=== PATIENT | female | born 1955 | race Caucasian/White ===

== ENCOUNTER 2019-04-23 12:00 | Outpatient (CLI) | payer BC, SELFPAY | END 2019-04-23 12:01 | disposition home or self-care (01) | LOC: SLEEP 04-28 12:47 | PROVIDERS: Family Provider Nurse Practitioner; PCP Nurse Practitioner; Visit Provider Internal Medicine Critical Care Medicine | DX: G47.33 Obstructive sleep apnea (adult) (pediatric) (principal) | CPT/HCPCS: G0399 ==

== ENCOUNTER 2019-04-27 09:40 | Outpatient (CLI) | payer BC, SELFPAY | END 2019-04-27 09:41 | disposition home or self-care (01) | PROVIDERS: Family Provider Nurse Practitioner; PCP Nurse Practitioner; Visit Provider Internal Medicine Critical Care Medicine | DX: J45.909 Unspecified asthma, uncomplicated (principal) | CPT/HCPCS: 94010; 94726; 94729 ==

== ENCOUNTER 2019-05-14 20:00 | Outpatient (CLI) | payer BC, SELFPAY | END 2019-05-14 20:01 | disposition home or self-care (01) | LOC: SLEEP 05-15 09:43 | PROVIDERS: Family Provider Nurse Practitioner; PCP Nurse Practitioner; Visit Provider Internal Medicine Critical Care Medicine | DX: G47.33 Obstructive sleep apnea (adult) (pediatric) (principal) | CPT/HCPCS: 95810; 95811 ==

== ENCOUNTER 2019-06-22 13:34 | Outpatient (CLI) | payer BC, SELFPAY ==
--- NOTE | 2019-06-22 14:15 | USCV_ITS ---
Dorothy Odonnell Age: 64 Gender: F : 1955 Exam Date: 06/22/2019 13:52 Ordering Phys: Humza Horton MD Technologist: Nadira Cardona Exam Location: [facility] [place] Indication: AO MURMUR BP: 115 / 75 HR: 84 Rhythm: Sinus Technical Quality: Adequate MEASUREMENTS (Male / Female) Normal Values 2D ECHO LV Diastolic Diameter PLAX 4.8 cm 4.2 - 5.9 / 3.9 - 5.3 cm LV Systolic Diameter PLAX 3.9 cm LV Chamber Size 3.9 cm IVS Diastolic Thickness 1.2 cm 0.6 - 1.0 / 0.6 - 0.9 cm IVS Systolic Thickness 1.6 cm LVPW Diastolic Thickness 1.4 cm 0.6 - 1.0 / 0.6 - 0.9 cm LVPW Systolic Thickness 1.4 cm RV Chamber Size 3.1 cm LVOT Diameter 2.0 cm LV Ejection Fraction 2D Teich 40.0 % LV Ejection Fraction MOD 2C 71.8 % LV Ejection Fraction 2C AL 72.7 % LA Diameter 4.0 cm LA Width 2.7 cm LA Height 4.1 cm RA Width 3.9 cm RA Height 3.5 cm Aorta at Sinotubular Diameter 3.0 cm M-MODE LV Diastolic Diameter MM 5.7 cm 4.2 - 5.9 / 3.9 - 5.3 cm LV Systolic Diameter MM 3.6 cm LV Ejection Fraction MM Teich 66.3 % IVS Diastolic Thickness MM 0.9 cm 0.6 - 1.0 / 0.6 - 0.9 cm IVS Systolic Thickness MM 1.9 cm LVPW Diastolic Thickness MM 1.1 cm 0.6 - 1.0 / 0.6 - 0.9 cm LVPW Systolic Thickness MM 1.6 cm RV Diastolic Diameter MM 1.1 cm Aortic Annulus Diameter 3.4 cm LA Ao Ratio MM 1.2 MV E Point Septal Separation 0.9 cm DOPPLER AV Peak Velocity 165.0 cm/s LVOT Peak Velocity 83.0 cm/s AV Area Cont Eq vti 2.1 cm squared AV Area Cont Eq pk 1.7 cm squared MV Area PHT 5.1 cm squared Mitral E to A Ratio 0.8 MV E' Velocity 10.0 cm/s Mitral E to MV E' Ratio 9.1 Mitral E to LV E' Lateral Ratio 7.9 Mitral E to LV E' Septal Ratio 10.9 TR Peak Velocity 9.0 cm/s TR Peak Gradient 0.0 mmHg TR Mean Velocity 198.2 cm/s TR Mean Gradient 17.8 mmHg TR Velocity Time Integral 66.1 cm TV Peak E Velocity 73.0 cm/s Right Atrial Pressure 3.0 mmHg Pulmonary Artery Systolic Pressu 3.0 mmHg PV Peak Velocity 91.0 cm/s RV Acceleration Time 0.1 s RV Ejection Time 0.3 s RV AcT/ET 0.4 FINDINGS Left Ventricle Normal left ventricular cavity size. Mildly increased left ventricular wall thickness. Normal left ventricular systolic function. Left ventricular ejection fraction is estimated at 61 %. No regional wall motion abnormalities. Normal diastolic function. Right Ventricle Normal right ventricular size and systolic function. Right ventricular systolic pressure 32 mmHg. Right Atrium Normal right atrial size. Left Atrium Upper normal left atrial size. Mitral Valve Mildly thickened mitral valve. Trace mitral valve regurgitation. Aortic Valve Aortic valve not well visualized. Probably trileaflet aortic valve. Aortic valve sclerosis without stenosis. No aortic valve regurgitation. Tricuspid Valve Structurally normal tricuspid valve. No tricuspid valve stenosis. Trace tricuspid valve regurgitation. Pulmonic Valve Pulmonic valve not well visualized. Trace pulmonary valve regurgitation. Pericardium No pericardial effusion. Aorta Normal size aortic root and proximal ascending aorta. CONCLUSIONS 1. Normal left ventricular cavity size and systolic function. Mildly increased left ventricular wall thickness. Left ventricular ejection fraction is estimated at 61 %. No regional wall motion abnormalities. Normal diastolic function. 2. Normal right ventricular size and systolic function. 3. No significant valvular abnormality. 4. Pulmonary artery pressure estimated at 32 mmHg. 5. No prior similar studies to compare. Ilene Michaud MD (Electronically Signed) Final Date: 23 June 2019 17:41 S
== END 2019-06-22 13:35 | disposition home or self-care (01) ==
LOC: RAD 13:36
PROVIDERS: Family Provider Nurse Practitioner; PCP Nurse Practitioner; Visit Provider Internal Medicine Critical Care Medicine
DX: R06.02 Shortness of breath (principal)
CPT/HCPCS: 93306

== ENCOUNTER 2019-10-09 14:11 | Outpatient (CLI) | payer BC, SELFPAY ==
[2019-10-09 14:42] LABS: Basophils # 0.1 10^3/uL (0.0-0.1); Eosinophils # 0.3 10^3/uL (0.0-0.8); Eosinophils % 2.5 %; Hematocrit 39.5 % (37.0-47.0); Lymphocytes # 3.5 10^3/uL (0.8-4.8); Lymphocytes % 34.1 %; Mean Corpuscular HGB Conc 30.4 g/dL (30.0-36.0); Mean Corpuscular Hemoglobin 26.8 pg (28.0-34.0); Mean Corpuscular Volume 88.2 fL (81-99); Mean Platelet Volume 10.2 fL (7.4-10.4); Monocytes # 0.6 10^3/uL (0.2-0.9); Monocytes % 6.3 %; Neutrophils # 5.7 10^3/uL (1.8-7.7); Neutrophils % 55.8 %; Nucleated Red Blood Cells % 0 %; Platelet Count 431 10^3/cmm (130-400); Red Blood Count 4.48 10^6/uL (4.1-5.3); Red Cell Distribution Width 14.9 % (12.1-15.1); White Blood Count 10.2 10^3/uL (4.0-10.0)
[2019-10-09 15:13] LABS: Alanine Aminotransferase 18 U/L (0-33); Albumin Level 4.3 g/dL (3.5-5.2); Alkaline Phosphatase 101 IU/L (35-105); Anion Gap 15.1 (5-19); Aspartate Amino Transferase 15 U/L (0-32); Blood Urea Nitrogen 17 mg/dL (8-23); Calcium 9.8 mg/dL (8.5-10.5); Carbon Dioxide 24 mmol/L (22-29); Chloride 103 mmol/L (98-107); Globulin 2.8 g/dL (1.3-4.6); Glomerular Filtration Rate 100.6 mL/min (90-130); Glucose 107 mg/dL (65-115); Osmolality Calculated 283 mOsm/kg (285-295); Potassium 4.1 mmol/L (3.5-5.1); Sodium 138 mmol/L (136-145); Total Bilirubin 0.2 mg/dL (0.15-1.2); Total Protein 7.1 g/dL (6.6-8.7)
[2019-10-09 15:31] LABS: Erythrocyte Sedimentation Rate 26 mm/hr (0-15)
[2019-10-09 15:46] LABS: C Reactive Protein 9.1 mg/L (0.0-4.9)
[2019-10-09 16:03] LABS: Vitamin B12 561 pg/mL (232-1245)
[2019-10-12 17:20] LABS: Bermuda Class 0; Bermuda Grass (G2) Ige <0.10 kU/L; Cat Dander (E1) Ige <0.10 kU/L; Cat Dander Class 0; Common Ragweed (Short) (W1) Ig <0.10 kU/L; Dog Dander (E5) Ige <0.10 kU/L; Dog Dander Class 0; Elm (T8) Ige <0.10 kU/L; Elm Class 0; English Plantain (W9) Ige <0.10 kU/L; English Plantain Class 0; Immunoglobulin E 5 kU/L (<OR=114); Johnson Grass (G10) Ige <0.10 kU/L; Johnson Grass Cl 0; June Grass Class 0; June Grass(Kentucky Blue) (G8) <0.10 kU/L; Lamb'S Quarters (Goose Foot) <0.10 kU/L; Lamb'S Quarters Class 0; Maple (Box Elder) (T1) Ige <0.10 kU/L; Maple Class 0; Meadow Fescue (G4) Ige <0.10 kU/L; Meadow Fescue Class 0; Oak (T7) Ige <0.10 kU/L; Oak Class 0; Orchard Grass (Cocksfoot) (G3) <0.10 kU/L; Perennial Rye Grass (G5) Ige <0.10 kU/L; Perennial Rye Grass Class 0; Ragweeed Class 0; Rough Marsh Elder (W16) Ige <0.10 kU/L; Rough Marsh Elder Class 0; Sweet Vernal Class 0; Sweet Vernal Grass (G1) Ige <0.10 kU/L; Timothy Grass (G6) Ige <0.10 kU/L; Timothy Grass Class 0
[2019-10-13 18:20] LABS: Alternaria Alternata (M6) Ige <0.10 kU/L; Alternaria Class 0; D. Farinae Class 0; Dermatophagoides Class 0; Dermatophagoides Farinae (D2) <0.10 kU/L; Dermatophagoides Pteronyssinus <0.10 kU/L; House Dust (Greer) (H1) Ige <0.10 kU/L; House Dust (Hollister- Stier) <0.10 kU/L; House Dust Class 0; Mucor Racemosus Class 0; Penicillium Class 0; Penicillium Notatum (M1) Ige <0.10 kU/L
[2019-10-16 16:20] LABS: Aspergillus Fumigatus, Igg Ab, 28.2 mg/L (<=102)
== END 2019-10-09 14:12 | disposition home or self-care (01) ==
LOC: LAB 14:15
PROVIDERS: Family Provider Nurse Practitioner; PCP Nurse Practitioner; Visit Provider Internal Medicine Critical Care Medicine
DX: R53.83 Other fatigue (principal); R06.02 Shortness of breath
CPT/HCPCS: 36415; 80053; 82607; 82785; 84443; 85025; 85651; 86003; 86140

== ENCOUNTER 2019-12-02 15:11 | Outpatient (CLI) | payer BC, SELFPAY ==
--- NOTE | 2019-12-02 15:16 | MM_ITS ---
WS: [id number] BILATERAL DIGITAL SCREENING MAMMOGRAM WITH CAD CLINICAL INFORMATION: SCREENING HISTORY: Screening mammogram. No current complaints. COMPARISON: TECHNIQUE: Bilateral CC and MLO views. FINDINGS: Fatty-replaced breasts bilaterally. No suspicious focal mass, asymmetry, calcifications, or sharepoint application architect ural distortion. No evidence of malignancy. Punctate calcification left breast. MM/[place] [id number] IMPRESSION: BI-RADS: 2-Benign FOLLOW UP: 1 Year Follow-up Recommend return to annual screening mammography.
== END 2019-12-02 15:12 | disposition home or self-care (01) ==
LOC: RADSHAW 15:15
PROVIDERS: PCP Nurse Practitioner; Visit Provider Nurse Practitioner
DX: Z12.31 Encounter for screening mammogram for malignant neoplasm of breast (principal)
CPT/HCPCS: 77067

== ENCOUNTER 2020-08-19 06:00 | Outpatient (RCR) | payer BC, SELFPAY | END 2020-09-05 23:59 | disposition home or self-care (01) | LOC: SPT 06:00 | PROVIDERS: PCP Nurse Practitioner; Visit Provider Internal Medicine Critical Care Medicine | DX: M79.2 Neuralgia and neuritis, unspecified (principal) | CPT/HCPCS: 97161 ==

== ENCOUNTER 2020-08-19 17:08 | Outpatient (CLI) | payer BC, SELFPAY ==
--- NOTE | 2020-08-19 17:14 | XRR_ITS ---
PROCEDURE INFORMATION: Exam: XR Right Hip Exam date and time: 08/19/2020 5:15 PM Age: 65 years old Clinical indication: Hip pain; Right hip; Patient HX: C/O chronic pain RT hip and low back. Fell off roof 20 years ago TECHNIQUE: Imaging protocol: XR Right hip. Views: 2 or 3 views hip with pelvis when performed. Total images: 2 COMPARISON: No relevant prior studies available. FINDINGS: Bones/joints: No visible fracture, subluxation, or dislocation. 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 Chronic right sacroiliitis Soft tissues: Unremarkable. XR/XR hip RT 2-3V wo/w pel* [id number] IMPRESSION: Nonacute.
--- NOTE | 2020-08-19 17:14 | XRR_ITS ---
PROCEDURE INFORMATION: Exam: XR Lumbosacral Spine Exam date and time: 08/19/2020 5:15 PM Age: 65 years old Clinical indication: Patient HX: C/O chronic bilateral low back pain and RT hip. Fell off roof 20 years ago TECHNIQUE: Imaging protocol: XR of the lumbosacral spine. Views: 2 or 3 views. Total images: 3 COMPARISON: No relevant prior studies available. FINDINGS: Bones/joints: No visible acute osseous abnormality. No visible fracture. No visible spondylolysis or spondylolisthesis. Facet arthrosis L4/L5 and L5/S1. Mild intervertebral disc space height loss L3/L4. Remaining intervertebral disc space heights relatively preserved for age. Pedicles intact. Soft tissues: Unremarkable. XR/XR lumbar spine 2-3V* [id number] IMPRESSION: Nonacute.
== END 2020-08-19 17:09 | disposition home or self-care (01) ==
PROVIDERS: PCP Nurse Practitioner; Visit Provider Nurse Practitioner
DX: M25.551 Pain in right hip (principal); G89.29 Other chronic pain; M54.5 Low back pain
CPT/HCPCS: 72100; 73502

== ENCOUNTER 2021-07-03 13:43 | Emergency (ER) | payer BC, SELFPAY ==
[2021-07-03 13:55] VITALS: BP 193/90; PULSE 76; RESP 18; TEMP 36.8; O2SAT 97; BMI 39.1
--- NOTE | 2021-07-03 14:26 | ED_ITS ---
Documented by User: TYE Campa 07/04/21 08:51 HPI - Back Pain/Injury General: Chief Complaint: Back Pain/Injury Stated Complaint: Nausea Lower back pain Time Seen by Provider: 07/03/21 14:08 History of Present Illness: Patient is a 66-year-old female comes to the ED with left flank pain and nausea. Symptoms started at around 10 AM this morning. She first started feeling a little unwell and got nauseous. Then approximately an hour after the nausea started she got severe and intense left flank pain that she rated a 10 out of 10. The pain has reduced some before she arrived to the ED. She now rates it a 7 out of 10 and describes it as intermittent and sharp and achy. Denies any history of kidney stones or any other similar abdominal pain. She endorses having frequent urination this morning but denies any hematuria or dysuria. Associated symptoms: Reports nausea; Deny abdominal pain, chills, dysuria, fatigue, fever(s), hematuria or vomiting Review of Systems Const: Denies: fever(s), chills or fatigue Eyes: Denies: change in vision or eye discomfort ENMT: Denies: throat pain, odynophagia, nasal discharge or nasal congestion Card: Denies: chest pain, palpitations, edema, swelling of feet/ankles, dyspnea on exertion or orthopnea Resp: Denies: dyspnea, productive cough or non-productive cough GI: Reports: nausea; Denies: abdominal pain, vomiting, diarrhea, constipation or hematochezia : Reports: flank pain and urinary frequency (increased); Denies: dysuria or hematuria Musc: Denies: neck pain, back pain or extremity swelling Skin/Breast: Denies: rash or new lesions Neuro: Denies: headache(s), numbness in extremities or weakness in extremities PFSH ED PFSH: Medical History Allergic rhinitis Allergic rhinosinusitis Asthma Urinary bladder incontinence Surgical History H/O eye surgery H/O shoulder surgery History of cholecystectomy History of dermoid cyst excision History of hysterectomy History of nasal surgery History of tonsillectomy and adenoidectomy History of weight loss surgery Family History Father Diabetes Hypertension Mother Hypertension Cancer Brother Hypertension CAD (coronary artery disease) Social History Smoking and tobacco status: former smoker Quit status (tobacco): has quit using tobacco Alcohol intake: current Alcohol intake frequency: holidays/special occasions only Lives independently: Yes Household members: none Marital status: Current occupational status: employed Current occupation: Teacher History of recent travel: No Current gender identity: Female Physical Exam Const: COMMON NORMALS: no acute distress, patient oriented x3 and alert GENERAL APPEARANCE: cooperative and comfortable HENMT: COMMON NORMALS: normocephalic HEAD & SCALP: normocephalic MOUTH: Normal oral and palatal mucosa present THROAT: posterior oropharynx normal and uvula midline Neck/C-Spine: COMMON NORMALS: supple GENERAL: Yes normal visual inspection Resp: COMMON NORMALS: normal respiratory effort, No retractions, No use of accessory muscles and clear to auscultation bilaterally AUSCULTATION: clear to auscultation bilaterally Cardio: COMMON NORMALS: regular rate, regular rhythm, S1 normal heart sound present, S2 normal heart sound present, No gallops present (Cardio), No clicks present (Cardio), No murmurs present (Cardio) and Peripheral pulses 2+ throughout RATE: regular rate RHYTHM: regular rhythm HEART SOUNDS: S1 normal heart sound present and S2 normal heart sound present PERIPHERAL PULSES: Peripheral pulses 2+ throughout GI: COMMON NORMALS: Normal to inspection, nondistended, normoactive bowel sounds present, Soft to palpation, non-tender and no masses PALPATION: Yes Soft to palpation : COMMON NORMALS: Yes no CVA tenderness BLADDER/KIDNEY EXAM: Yes no CVA tenderness Back/Pelvis: COMMON NORMALS: no CVA tenderness Extremity: COMMON NORMALS: normal to inspection Neuro: COMMON NORMALS: patient oriented x3 and moves all extremities SENSORIUM/ORIENTATION: Yes alert Skin: GENERAL SKIN EXAM: dry skin Course Vital Signs: Vital signs: Vital Signs Temperature 98.2 F 07/03/21 13:55 Pulse Rate 85 07/03/21 16:51 Respiratory Rate 18 07/03/21 16:51 Blood Pressure 184/90 07/03/21 16:51 Pulse Oximetry 98 07/03/21 16:51 MDM - Back Pain/Injury Medical Decision Making Patient is a 66-year-old female comes to the ED with left flank pain. She had a sudden onset of acute left flank pain several hours ago with some nausea and vomited once. Patient's pain improved before coming to the ED. Vitals are stable. White blood cell count 12.6. Patient's urine showed some calcium oxalate crystals blood cells. CT kidney stone showed a 3 mm stone that is now in the bladder with some mild left hydroureteronephrosis. Patient was diagnosed with a kidney stone and is stable for discharge home. Placed an order with case management for patient be referred to Dr. Molina. She was sent home with a prescription for some naproxen and hydrocodone for pain. She was given strict return ED precautions. Patient understood and agree with plan. Labs I reviewed the patient's lab results. : 07/03/21 15:14 07/03/21 15:14 Radiology Impressions Abdomen/Pelvis CT 07/03/21 14:58 IMPRESSION: 1. Mild LEFT hydroureteronephrosis. There is perinephric stranding around the kidney and ureter. No ureteral calcification identified. There is a 3 mm calcification now within the urinary bladder which was probably recently passed from the ureter. 2. The appendix is not identified. 3. Soft tissue mass may be intramural in the distal esophagus. Consider further evaluation of the esophagus with barium swallow on an outpatient basis. This may be an adenoma or leiomyoma. 4. Prior gastric bypass and cholecystectomy. Laboratory Results WBC 12.6 10^3/uL (4.0-10.0) H 07/03/21 15:14 RBC 4.85 10^6/uL (4.1-5.3) 07/03/21 15:14 Hgb 13.0 g/dL (11.5-15.3) 07/03/21 15:14 Hct 42.1 % (37.0-47.0) 07/03/21 15:14 MCV 86.8 fl (81-99) 07/03/21 15:14 MCH 26.8 pg (28.0-34.0) L 07/03/21 15:14 MCHC 30.9 g/dL (30.0-36.0) 07/03/21 15:14 RDW 14.1 % (12.1-15.1) 07/03/21 15:14 Plt Count 441 10^3/cmm (130-400) H 07/03/21 15:14 MPV 10.6 fL (7.4-10.4) H 07/03/21 15:14 Neut % (Auto) 81.4 % 07/03/21 15:14 Lymph % (Auto) 12.9 % 07/03/21 15:14 [place] % (Auto) 4.1 % 07/03/21 15:14 Eos % (Auto) 0.7 % 07/03/21 15:14 Baso % (Auto) 0.5 % 07/03/21 15:14 Neut # (Auto) 10.21 10^3/uL (1.8-7.7) H 07/03/21 15:14 Lymph # (Auto) 1.6 10^3/uL (0.8-4.8) 07/03/21 15:14 [place] # (Auto) 0.5 10^3/uL (0.2-0.9) 07/03/21 15:14 Eos # (Auto) 0.1 10^3/uL (0.0-0.8) 07/03/21 15:14 Baso # (Auto) 0.1 10^3/uL (0.0-0.1) 07/03/21 15:14 Nucleated RBC % (auto) 0 % 07/03/21 15:14 Nucleated RBCs # 0.0 /100WBC 07/03/21 15:14 Sodium Cancelled 07/03/21 15:14 Potassium Cancelled 07/03/21 15:14 Chloride Cancelled 07/03/21 15:14 Carbon Dioxide Cancelled 07/03/21 15:14 Anion Gap Cancelled 07/03/21 15:14 BUN Cancelled 07/03/21 15:14 Creatinine Cancelled 07/03/21 15:14 GFR Calculation Cancelled 07/03/21 15:14 Glucose Cancelled 07/03/21 15:14 Calculated Osmolality Cancelled 07/03/21 15:14 Calcium Cancelled 07/03/21 15:14 Total Bilirubin Cancelled 07/03/21 15:14 AST Cancelled 07/03/21 15:14 ALT Cancelled 07/03/21 15:14 Alkaline Phosphatase Cancelled 07/03/21 15:14 Total Protein Cancelled 07/03/21 15:14 Albumin Cancelled 07/03/21 15:14 Globulin Cancelled 07/03/21 15:14 Lipase Cancelled 07/03/21 15:14 Urine Color Straw (Yellow) 07/03/21 14:44 Urine Appearance Clear (CLEAR) 07/03/21 14:44 Urine pH 6 (5-7) 07/03/21 14:44 Ur Specific [place] 1.020 (1.005-1.030) 07/03/21 14:44 Urine Protein Neg (Negative) 07/03/21 14:44 Urine Glucose (UA) Norm (Normal) 07/03/21 14:44 Urine Ketones 1+ (Negative) H 07/03/21 14:44 Urine Blood Trace (Negative) H 07/03/21 14:44 Urine Nitrate Negative (Negative) 07/03/21 14:44 Urine Bilirubin Neg (Negative) 07/03/21 14:44 Urine Urobilinogen Norm mg/dL (Negative) 07/03/21 14:44 Ur Leukocyte Esterase Negative (Negative) 07/03/21 14:44 Urine RBC 0-4 /hpf (0-2) H 07/03/21 14:44 Urine WBC None /hpf (0-5) 07/03/21 14:44 Ur Squamous Epith Cells 0-4 /hpf (0-5) H 07/03/21 14:44 Calcium Oxalate Crystal 40-55 /hpf H 07/03/21 14:44 Amorphous Sediment Not Reportable 07/03/21 14:44 Urine Bacteria Trace /hpf (NONE) 07/03/21 14:44 Discharge Plan Discharge Patient Disposition: Home Clinical Impression: Kidney stone, Mass of esophagus Condition: Stable Prescriptions: New naproxen 500 mg tablet 500 mg PO BID PRN (Reason: pain) Qty: 15 0RF tamsulosin 0.4 mg capsule 0.4 mg PO DAILY Qty: 20 0RF Rx Instructions: Take 1 tablet daily until kidney stone is passed. No Action calcium carbonate [Calcium 600] 600 mg calcium (1,500 mg) tablet 600 mg PO BID 0RF omega-3 fatty acids [Fish Oil Concentrate] 1,000 mg capsule 2,000 mg PO DAILY 0RF cholecalciferol (vitamin D3) 3,000 unit tablet 3,000 unit PO DAILY 0RF Galzin 25 mg (zinc) capsule 25 mg PO DAILY 0RF Rx Instructions: swallow whole; do not chew/break/dissolve/open ProAir RespiClick 90 mcg/actuation aerosol powdr breath activated 2 inh inhalation Q6H PRN (Reason: shortness of breath or wheezing) Qty: 3 2RF azelastine 137 mcg (0.1 %) aerosol,spray 2 spray INTRANASAL BID Qty: 90 3RF fluticasone propion-salmeterol [Advair Diskus] 250-50 mcg/dose blister with device 1 inh INHALATION BID Qty: 180 3RF Spiriva Respimat 1.25 mcg/actuation mist See Rx Instructions .ROUTE .COMPLEX Qty: 12 3RF Dose Instruction: USE 2 INHALATIONS BY MOUTH DAILY Rx Instructions: USE 2 INHALATIONS BY MOUTH DAILY Multi-Vitamin Tablet 1 tab PO DAILY 0RF lutein 20 mg Capsule 20 mg PO DAILY 0RF Rx Instructions: give with meal/snack Discharge Orders: Discharge ED (Routine); Ordered 07/03/21 Ordered By: Pepe Gimenez Referrals: Laura Byrd APN [Primary Care Provider] - Discharge Diet: Regular Discharge Activity: Increase activity as tolerated Patient Instructions: Kidney Stones (ED), How to Strain Your Urine (ED), Opioid Safety Activity Restrictions/Additional Instructions: Follow-up with medical provider as directed. Case management should be contacting you in the next several days to set up an appointment with Dr. Molina the urologist. Strain urine to catch stone and drink lots of fluid to stay hydrated and help pass stone. Take medications as prescribed. Incidental CT finding needs further outpatient follow-up. Please discuss with PCP for further evaluation. CT report finding below.. Soft tissue mass may be intramural in the distal esophagus. Consider further evaluation of the esophagus with barium swallow on an outpatient basis. This may be an adenoma or leiomyoma. Return to the ER or your medical provider if condition worsens. Please read and understand discharge instructions. If any questions, please ask. Coding Level of Care Code ED General Service Technician for Chg Fwd Exam Comprehensive Documented by User: Sal Knowles DO 07/04/21 09:20 HPI - Back Pain/Injury General: Chief Complaint: Back Pain/Injury Stated Complaint: Nausea Lower back pain Time Seen by Provider: 07/03/21 14:08 [facility] ED PFSH: Medical History Allergic rhinitis Allergic rhinosinusitis Asthma Urinary bladder incontinence Surgical History H/O eye surgery H/O shoulder surgery History of cholecystectomy History of dermoid cyst excision History of hysterectomy History of nasal surgery History of tonsillectomy and adenoidectomy History of weight loss surgery Family History Father Diabetes Hypertension Mother Hypertension Cancer Brother Hypertension CAD (coronary artery disease) Social History Smoking and tobacco status: former smoker Quit status (tobacco): has quit using tobacco Alcohol intake: current Alcohol intake frequency: holidays/special occasions only Lives independently: Yes Household members: none Marital status: Current occupational status: employed Current occupation: Teacher History of recent travel: No Current gender identity: Female Course Vital Signs: Vital signs: Vital Signs Temperature 98.2 F 07/03/21 13:55 Pulse Rate 85 07/03/21 16:51 Respiratory Rate 18 07/03/21 16:51 Blood Pressure 184/90 07/03/21 16:51 Pulse Oximetry 98 07/03/21 16:51 MDM - Back Pain/Injury Medical Decision Making Patient is a 66-year-old female comes to the ED with left flank pain. She had a sudden onset of acute left flank pain several hours ago with some nausea and vomited once. Patient's pain improved before coming to the ED. Vitals are stable. White blood cell count 12.6. Patient's urine showed some calcium oxalate crystals blood cells. CT kidney stone showed a 3 mm stone that is now in the bladder with some mild left hydroureteronephrosis. Patient was diagnosed with a kidney stone and is stable for discharge home. Placed an order with case management for patient be referred to Dr. Molina. She was sent home with a prescription for some naproxen and hydrocodone for pain. She was given strict return ED precautions. Patient understood and agree with plan. Chart reviewed and patient discussed with midlevel. Agree with assessment and plan. Labs : 07/03/21 15:14 07/03/21 15:14 Radiology Impressions Abdomen/Pelvis CT 07/03/21 14:58
[2021-07-03 14:56] LABS: Add Urine Microscopic? YES; Bilirubin Urine Neg (Negative); Blood Urine Trace (Negative); Glucose Urine UA Norm (Normal); Ketones Urine 1+ (Negative); Leukocyte Esterase Urine Negative (Negative); Nitrate Urine Negative (Negative); Protein Urine Neg (Negative); Urine Appearance Clear (CLEAR); Urine Color Straw (Yellow); Urobilinogen Urine Norm (Negative); pH Urine 6 (5-7)
--- NOTE | 2021-07-03 14:58 | CT_ITS ---
WS: [id number] CT ABDOMEN AND PELVIS NONCONTRAST HISTORY: left flank pain with increased urine frequency and nausea TECHNIQUE: Imaging performed through the abdomen and pelvis. Coronal and sagittal reformats are submi tted. All CT scans at [facility] use at least one of these dose optimization techniques: auto mated exposure control; mA and/or kV adjustment per patient size (includes targeted exams where dose is matched to clinical indication); or iterative reconstruction. DLP: 2107.67 mGy.cm COMPARISON: None available. Lower thorax: Lung bases are clear. No cardiomegaly. There is a soft tissue mass extending over lengt h of 4.5 cm x 4.3 x 4.5 cm which is causing compression upon the esophagus. This may be an intramural mass causing smooth filling defect on the esophagus. Distal esophagus is displaced slightly posterio r. This may be within the wall of the distal esophagus. There is also a small hiatal hernia. Status p ost gastric bypass. Liver: Hepatic steatosis. Mild hepatomegaly. 8mm low attenuation nodule in the lower RIGHT lobe. Gallbladder: Prior cholecystectomy. Pancreas: Fatty replacement and atrophy. Spleen: Normal. Adrenal glands: Normal. No mass. Right kidney: Normal size kidney with no mass or hydronephrosis. Left kidney: Moderate perinephric stranding around the entire kidney. Mild hydronephrosis and hydrour eter. Perinephric stranding around the ureter. There is a 3 mm calcification which is extruded into t he urinary bladder. No additional calcification within the ureter. Aorta: Mild atherosclerosis abdominal aorta with no aneurysm. No free fluid, intraperitoneal air or significant lymphadenopathy. GI tract: The appendix is not identified. No GI tract obstruction. There are a few diverticula in the descending and sigmoid colon without inflammation. Abdominal wall: Fat-containing umbilical hernia. Pelvis: Prior hysterectomy. Osseous structures: Mild facet joint arthritis in the lower lumbar spine. CT/CT kidney stone [id number] IMPRESSION: 1. Mild LEFT hydroureteronephrosis. There is perinephric stranding around the kidney and ureter. No ureteral calcification identified. There is a 3 mm calcif ication now within the urinary bladder which was probably recently passed from the ureter. 2. The appendix is not identified. 3. Soft tissue mass may be intramural in the distal esophagus. Consider furthe r evaluation of the esophagus with barium swallow on an outpatient basis. This may be an adenoma or leiomyoma. 4. Prior gastric bypass and cholecystectomy.
[2021-07-03 15:02] LABS: RBC Urine 0-4 /hpf (0-2); Squamous Epithelial Cell Urine 0-4 /hpf (0-5)
[2021-07-03 15:03] LABS: Add Urine Culture? No; Bacteria Urine TRACE /hpf; Calcium Oxalate Crystals Urine 40-55 /hpf
[2021-07-03 15:26] LABS: Basophils # 0.1 10^3/uL (0.0-0.1); Basophils % 0.5 %; Eosinophils # 0.1 10^3/uL (0.0-0.8); Eosinophils % 0.7 %; Hematocrit 42.1 % (37.0-47.0); Lymphocytes # 1.6 10^3/uL (0.8-4.8); Lymphocytes % 12.9 %; Mean Corpuscular HGB Conc 30.9 g/dL (30.0-36.0); Mean Corpuscular Hemoglobin 26.8 pg (28.0-34.0); Mean Corpuscular Volume 86.8 fl (81-99); Mean Platelet Volume 10.6 fL (7.4-10.4); Monocytes # 0.5 10^3/uL (0.2-0.9); Monocytes % 4.1 %; Neutrophils # 10.21 10^3/uL (1.8-7.7); Neutrophils % 81.4 %; Nucleated Red Blood Cells % 0 %; Platelet Count 441 10^3/cmm (130-400); Red Blood Count 4.85 10^6/uL (4.1-5.3); Red Cell Distribution Width 14.1 % (12.1-15.1); White Blood Count 12.6 10^3/uL (4.0-10.0)
[2021-07-03] MEDS: ondansetron 2 mg/ML SDV 2 mL 4 MG IVP (15:33)
[2021-07-03] MEDS: sodium chloride 0.9% 500 ML 999 ML IV (15:33)
[2021-07-03 15:59] VITALS: PULSE 74; RESP 18; O2SAT 98
[2021-07-03] MEDS: tamsulosin 0.4 mg Capsule PO (16:09)
--- NOTE | 2021-07-03 16:50 | PC.NURSE ---
Pt refused a lab redraw. States she has been stuck 5 times and does not want to be stuck again. Was not able to get a CMP.
[2021-07-03 16:51] VITALS: BP 184/90; PULSE 85; RESP 18; O2SAT 98
--- NOTE | 2021-07-04 10:27 | DCPLANNER ---
Addendum entered by Claudia Olivera 07/27/21 12:23: Patient had a follow up appointment scheduled for 07.10.[address] Molina - patient did attend appointment. Addendum entered by Claudia Olivera 07/06/21 07:31: Patient has a follow up appointment scheduled for Saturday, July 10, 2021 at 10:00 with Elza Borges at urology. Clinic will call patient with appointment information. Original Note: labor relations manager had message to schedule a follow up appointment for patient with Dr. Molina. labor relations manager sent patients information to the front office staff at the office of Dr. Molina. Patients information will be printed and reviewed. Clinic will call patient with appointment information. labor relations manager called phone number [phone] to inform patient that rehabilitation case coordinator received the order to refer patient to the office of Dr. Molina. labor relations manager was unable to speak with patient at this time, a voicemail was left for patient that referral had been sent to Dr. Ho office, and that the clinic would be calling patient with appointment information.
== END 2021-07-03 16:40 | disposition home or self-care (01) ==
PROVIDERS: Emergency Provider Physician Assistant; PCP Nurse Practitioner
DX: N13.2 Hydronephrosis with renal and ureteral calculous obstruction (principal); K22.89 Other specified disease of esophagus; Z87.891 Personal history of nicotine dependence
CPT/HCPCS: 74176; 81001; 85025; 96374; 99283; J2405; J7040

== ENCOUNTER 2021-07-10 08:24 | Outpatient (CLI) | payer BC, SELFPAY ==
--- NOTE | 2021-07-10 08:45 | XR_ITS ---
WS: [id number] XR KUB [id number] REASON FOR EXAM: Kidney Stone FINDINGS: No intrarenal calculi or ureteral calculi are identified. The extremely small calculus in the urinary bladder seen on the CT scan 07/03/2021 would not likely be visible on a plain film. No additional calcific densities are seen in the pelvis compared to an AP lumbar spine image . No other significant abnormality. XR/XR KUB [id number] IMPRESSION: No urinary tract calculi identified as above.
== END 2021-07-10 08:25 | disposition home or self-care (01) ==
LOC: RAD 08:26
PROVIDERS: PCP Nurse Practitioner; Visit Provider Nurse Practitioner Family
DX: N20.0 Calculus of kidney (principal)
CPT/HCPCS: 74018; 81003

== ENCOUNTER 2021-08-23 09:53 | Outpatient (CLI) | payer BC, SELFPAY ==
--- NOTE | 2021-08-23 09:58 | FL_ITS ---
WS: [id number] Barium swallow and esophagram, 08/23/2021 Clinical Data: MASS/LESION IN ESOPHAGUS Comparison: CT abdomen pelvis, 07/03/2021. Fluoroscopy time: 1min [id number] # of spot films: Findings: The patient swallowed the thick and thin barium, and it flowed through the hypopharynx without hesita tion. No stricture, mass, polyp or erosion was seen. The barium entered the esophagus and there was poor motility throughout. No hiatal hernia, reflux, st ricture, polyp, mass, erosion or ulcer was noted. The distal esophagus was patulous. No intramural or extramural masses were seen in or adjacent to the distal esophagus. There are surgical clips at the gastroesophageal junction and in the body of the stomach. FL/FL barium swallow [id number] Impression: 1. Negative for intramural or extramural masses of the distal esophagus. 2. Patulous esophagus with poor motility. 3. Prior surgery of the gastroesophageal junction and body of the stomach.
== END 2021-08-23 09:54 | disposition home or self-care (01) ==
PROVIDERS: PCP Nurse Practitioner; Visit Provider Nurse Practitioner
DX: K22.89 Other specified disease of esophagus (principal)
CPT/HCPCS: 74220

== ENCOUNTER 2022-08-29 14:12 | Outpatient (CLI) | payer OTHER, SELFPAY ==
--- NOTE | 2022-08-29 14:20 | MM_ITS ---
WS: [id number] BILATERAL 3D TOMOSYNTHESIS DIGITAL SCREENING MAMMOGRAPHY WITH CAD CLINICAL INFORMATION: SCREENING HISTORY: Screening mammogram. No current complaints. COMPARISON: 2020 TECHNIQUE: Bilateral CC and MLO views. FINDINGS: Scattered fibroglandular densities bilaterally. No suspicious focal mass, asymmetry, calcifications, or architectural distortion. No evidence of malignancy. Punctate and lucent centered calcifications. MM/[place] [id number] IMPRESSION: BI-RADS: 2-Benign FOLLOW UP: 1 Year Follow-up Recommend return to annual screening mammography.
--- NOTE | 2022-08-29 14:47 | XR_ITS ---
WS: [email or web address] SCREENING DEXA SCAN [employer] CLINICAL INFORMATION: ASYMPTOMATIC MENOPAUSAL STATE COMPARISON: None. FINDINGS: The L1-L4 bone mineral density measures 1.219 g/cm2. This corresponds to a T score score of 0.3 and Z score of 0.8. Left femoral neck bone mineral density measures 0.966 g/cm2. This corresponds to a T score of -0.3 an d Z score of 0.2. Right femoral neck bone mineral density measures 1.038 g/cm2. This corresponds to a T score 0.2of and Z score of 0.7. Mean femoral neck bone mineral density measures 1.002 g/cm2. This corresponds to a T score of 0.0 and Z score of 0.4. XR/XR DEXA axial skeleton* [id number] IMPRESSION: Normal bone mineralization. Patient's FRAX calculated 10 year probability for major osteoporotic fracture i s 11.5 % and osteoporotic hip fracture is 1.0%.
== END 2022-08-29 14:13 | disposition home or self-care (01) ==
LOC: RAD 14:16
PROVIDERS: PCP Nurse Practitioner Family; Visit Provider Nurse Practitioner Family
DX: Z12.31 Encounter for screening mammogram for malignant neoplasm of breast (principal); Z78.0 Asymptomatic menopausal state
CPT/HCPCS: 77063; 77067; 77080

== ENCOUNTER 2023-01-04 14:54 | Outpatient (CLI) | payer MEDICARE, SELFPAY ==
--- NOTE | 2023-01-04 15:04 | XR_ITS ---
WS: [email or web address] Right hand, 3 views, 01/04/2023 Clinical Data: PAIN IN UNSPECIFIED HAND Comparison: None. Findings: No fractures or dislocations are seen. The soft tissues are unremarkable. The joint space s are normal Impression: Negative right hand.
== END 2023-01-04 14:55 | disposition home or self-care (01) ==
PROVIDERS: PCP Nurse Practitioner Family; Visit Provider Nurse Practitioner Family
DX: M79.641 Pain in right hand (principal)
CPT/HCPCS: 73130

== ENCOUNTER → 2023-08-13 15:06 | Outpatient (BNVA) | payer MEDICARE, SELFPAY | PROVIDERS: PCP Nurse Practitioner Family; Visit Provider Internal Medicine Pulmonary Disease | DX: J45.40 Moderate persistent asthma, uncomplicated (principal); J30.1 Allergic rhinitis due to pollen; G47.33 Obstructive sleep apnea (adult) (pediatric); I35.1 Nonrheumatic aortic (valve) insufficiency | CPT/HCPCS: 99214 ==

== ENCOUNTER 2023-10-14 14:33 | Outpatient (CLI) | payer MEDICARE, SELFPAY ==
--- NOTE | 2023-10-14 14:38 | MM_ITS ---
WS: [email or web address] BILATERAL 3D TOMOSYNTHESIS DIGITAL SCREENING MAMMOGRAPHY WITH CAD CLINICAL INFORMATION: SCREENING HISTORY: Screening mammogram. No current complaints. COMPARISON: 2022 TECHNIQUE: Bilateral CC and MLO views. FINDINGS: Scattered fibroglandular densities bilaterally. No suspicious focal mass, asymmetry, calcifications, or architectural distortion. No evidence of malignancy. A few incidental punctate calcifications. MM/[place] [id number] IMPRESSION: BI-RADS: 2-Benign FOLLOW UP: 1 Year Follow-up Recommend return to annual screening mammography.
== END 2023-10-14 14:34 | disposition home or self-care (01) ==
LOC: RAD 14:35
PROVIDERS: PCP Nurse Practitioner Family; Visit Provider Obstetrics & Gynecology
DX: Z12.31 Encounter for screening mammogram for malignant neoplasm of breast (principal)
CPT/HCPCS: 77063; 77067

== ENCOUNTER 2023-12-12 08:23 | Outpatient (CLI) | payer MEDICARE, SELFPAY ==
[2023-12-12 09:15] LABS: Basophils # 0.1 10^3/uL (0.0-0.1); Basophils % 0.8 %; Eosinophils # 0.3 10^3/uL (0.0-0.8); Eosinophils % 4.2 %; Hematocrit 37.7 % (36-47); Lymphocytes # 2.5 10^3/uL (0.8-4.8); Lymphocytes % 34.2 %; Mean Corpuscular HGB Conc 31.3 g/dL (30-55); Mean Corpuscular Hemoglobin 28.1 pg (27-33); Mean Corpuscular Volume 89.8 fl (85-98); Monocytes # 0.4 10^3/uL (0.2-0.9); Monocytes % 6.1 %; Neutrophils # 3.89 10^3/uL (1.8-7.7); Neutrophils % 54.4 %; Nucleated Red Blood Cells % 0 %; Platelet Count 379 10^3/cmm (157-399); Red Cell Distribution Width 14.1 % (12.1-15.1); White Blood Count 7.16 10^3/uL (3.29-11.43)
[2023-12-12 09:34] LABS: Alanine Aminotransferase 38 U/L (0-33); Albumin Level 3.6 g/dL (3.5-5.2); Alkaline Phosphatase 145 U/L (35-105); Anion Gap 12.7 (5-19); Aspartate Amino Transferase 22 U/L (0-32); Blood Urea Nitrogen 14 mg/dL (8-23); Calcium 8.7 mg/dL (8.5-10.5); Carbon Dioxide 25 mmol/L (22-29); Chloride 110 mmol/L (98-107); Chol HDL Ratio 3.21 mg/dL (0.0-4.40); Cholesterol 170 mg/dL (0-200); Globulin 2.3 g/dL (1.3-4.6); Glomerular Filtration Rate 122.7 mL/min (90-130); Glucose 99 mg/dL (65-115); HDL Cholesterol 53 mg/dL (60-100); Iron 68 ug/dL (37-145); LDL Cholesterol Calculated 100 mg/dL (50-129); LDL HDL Ratio 1.89 RATIO (0.00-3.22); Osmolality Calculated 299 mOsm/kg (285-295); Percent Saturation 25.1 % (20-50); Potassium 3.7 mmol/L (3.5-5.1); Sodium 144 mmol/L (136-145); Total Bilirubin 0.3 mg/dL (0.15-1.2); Total Iron Binding Capacity 270 mcg/dl; Total Protein 5.9 g/dL (6.6-8.7); Triglycerides 86 mg/dL (0-150); Unsaturated Iron Binding 202 ug/dL (112-347)
[2023-12-12 09:40] LABS: Estmated Average Glucose 120; Hemoglobin A1C 5.8 % (4.0-6.0)
[2023-12-12 09:48] LABS: 25 Hydroxy Vitamin D 29 ng/mL (30-100); Vitamin B12 642 pg/mL (232-1245)
[2023-12-12 09:50] LABS: Calcium 9.2 mg/dL (8.5-10.5)
== END 2023-12-12 08:24 | disposition home or self-care (01) ==
LOC: LAB 08:24
PROVIDERS: PCP Nurse Practitioner Family; Visit Provider Surgery
DX: K91.2 Postsurgical malabsorption, not elsewhere classified (principal)
CPT/HCPCS: 36415; 80053; 80061; 82306; 82310; 82607; 83036; 83540; 83550; 83735; 83970; 84425; 84630; 85025

== ENCOUNTER 2023-12-24 18:17 | Emergency (ER) | payer MEDICARE, SELFPAY ==
--- NOTE | 2023-12-24 18:22 | XRR_ITS ---
PROCEDURE INFORMATION: Exam: XR Right Wrist Exam date and time: 12/24/2023 6:31 PM Age: 68 years old Clinical indication: Injury or trauma; Fall; Blunt trauma (contusions or hematomas); Wrist; Right TECHNIQUE: Imaging protocol: Radiologic exam of the right wrist. Views: 3 or more views. COMPARISON: No relevant prior studies available. FINDINGS: Bones/joints: Normal. Soft tissues: Normal. XR/XR wrist RT min 3V* [id number] IMPRESSION: No acute findings.
[2023-12-24 18:28] VITALS: BP 117/75; PULSE 76; RESP 16; TEMP 36.7; O2SAT 98; BMI 33.3
[2023-12-24 18:47] VITALS: BP 119/76; PULSE 72; RESP 16; O2SAT 100
[2023-12-24] MEDS: acetaminophen 500 mg Tablet 1000 MG PO (18:51)
--- NOTE | 2023-12-24 19:14 | ED_ITS ---
HPI - Extremity Problem General: Chief complaint: Extremity Injury, Upper Stated complaint: Right wrist pain Time Seen by Provider: 12/24/23 18:27 Source: patient Mode of arrival: ambulatory Limitations: no limitations History of Present Illness: Patient is a 68-year-old female presents the emergency department complaining of a right wrist injury onset prior to arrival when she fell off a horse. States she fell and caught her self of the right arm, is having pain to dorsal aspect of her right wrist joint. No radiation of the pain. No distal neurovascular deficits reported. No history of injuries or previous fractures/surgeries to that wrist. No other injuries with the fall. Has not taken anything for pain at this time. MD Complaint: joint pain Onset (ago): minute(s) Pain Consistency: constant Location: right and upper extremity Radiation: none Exacerbating factors: range of motion Associated symptoms: Deny chest pain, fever(s) or rash Context: other Related Data Home Medications Medication Instructions Recorded Confirmed calcium carbonate (Calcium 600) 600 mg PO BID 06/03/19 08/13/23 cholecalciferol (vitamin D3) 75 3,000 unit PO DAILY 06/03/19 08/13/23 mcg (3,000 unit) tablet omega-3 fatty acids 1,000 mg 2,000 mg PO DAILY 06/03/19 08/13/23 capsule (Fish Oil Concentrate) zinc acetate 25 mg (zinc) capsule 25 mg PO DAILY 02/08/20 08/13/23 (Galzin) lutein 20 mg capsule 20 mg PO DAILY 07/03/21 08/13/23 multivitamin 1 tab PO DAILY 07/03/21 08/13/23 tiotropium bromide 18 mcg capsule 1 cap inhalation DAILY 07/31/22 08/13/23 with inhalation device (Spiriva with HandiHaler) budesonide 0.25 mg/2 mL suspension 0.25 mg inhalation BID 08/13/23 08/13/23 for nebulization Previous Rx's Medication Instructions Recorded naproxen 500 mg tablet 500 mg PO BID PRN pain #15 tabs 07/03/21 albuterol sulfate 90 mcg/actuation 2 puff inhalation Q6H PRN 02/23/22 aerosol inhaler shortness of breath or wheezing #8.5 grams fluticasone 250 mcg-salmeterol 50 1 inh inhalation BID #60 ea 08/13/23 mcg/dose blistr powdr for inhalation (Wixela Inhub) Allergies Allergy/AdvReac Type Severity Reaction Status Date / Time No Known Allergies Allergy Verified 08/13/23 15:33 Review of Systems General: Reports: 10 or more systems reviewed and unremarkable except in HPI and below Const: Denies: fever(s) or chills Card: Denies: chest pain Resp: Denies: dyspnea or productive cough GI: Denies: abdominal pain, nausea, vomiting or diarrhea : Denies: flank pain Musc: Reports: joint pain (Right wrist); Denies: neck pain, back pain, extremity pain, extremity swelling, joint swelling, joint redness, joint warmth, limited range of motion or muscle weakness Skin/Breast: Denies: rash Neuro: Denies: headache(s), numbness in extremities or weakness in extremities PFSH ED PFSH: Medical History Urolithiasis Urinary bladder incontinence Allergic rhinitis Asthma Allergic rhinosinusitis Surgical History H/O shoulder surgery History of cholecystectomy History of nasal surgery History of hysterectomy History of dermoid cyst excision History of tonsillectomy and adenoidectomy H/O eye surgery History of weight loss surgery Family History Father , AT 80 Diabetes Hypertension Bleeding disorder Mother , AT AGE 60 Hypertension Cancer LIVER Brother Hypertension CAD (coronary artery disease) Social History Smoking and tobacco/nicotine status: never used tobacco/nicotine Alcohol intake: current Alcohol intake frequency: holidays/special occasions only Substance/Drug Use: never Marital status: Current occupational status: employed Current occupation: Teacher Do you think of yourself as: Straight/Heterosexual Physical Exam Const: COMMON NORMALS: no acute distress, patient oriented x3, no limitations, healthy appearing, alert and well nourished HENMT: COMMON NORMALS: normocephalic and atraumatic HEAD & SCALP: normocephalic and atraumatic Neck/C-Spine: COMMON NORMALS: full ROM, supple and no meningeal signs Resp: COMMON NORMALS: normal respiratory effort, No use of accessory muscles and clear to auscultation bilaterally AUSCULTATION: clear to auscultation bilaterally Cardio: COMMON NORMALS: regular rate and regular rhythm RATE: regular rate RHYTHM: regular rhythm Extremity: COMMON NORMALS: normal to inspection, full ROM, capillary refill normal, no joint enlargement and no clubbing, cyanosis or edema NARRATIVE EXTREMITY EXAM: No obvious joint enlargement of the right wrist. Tender to palpation over the dorsal aspect of the right wrist joint with no palpable deformity or signs of trauma. Radial pulse intact. Distal neurovascular status intact. Good strength distally. Neuro: COMMON NORMALS: patient oriented x3, moves all extremities, no focal motor deficits and no sensory deficits noted SENSORIUM/ORIENTATION: Yes alert MENINGEAL SIGNS: Yes no meningeal signs Skin: COMMON NORMALS: no rashes or lesions noted GENERAL SKIN EXAM: no rashes or lesions noted Course Vital Signs: Vital signs: Vital Signs Temperature 98.0 F 12/24/23 18:28 Pulse Rate 72 12/24/23 18:47 Respiratory Rate 16 12/24/23 18:47 Blood Pressure 119/76 12/24/23 18:47 Pulse Oximetry 100 12/24/23 18:47 Oxygen Delivery Me thod Room Air 12/24/23 18:47 MDM - Extremity (Nontraumatic) Medical Decision Making Patient injured right wrist after falling off a horse. X-ray was negative for any acute findings. Did inform the patient that if she continues to have persistence of pain over the next week despite conservative measurements to follow-up with primary care for a repeat image of the right wrist. Will put compression device on at this time and discussed RICE therapy with the patient. States she cannot take NSAIDs due to stomach procedure, she is informed to take Tylenol. Other reasons to return discussed she will be discharged home at this time. Lab Data Radiology Impressions Wrist X-Ray 12/24/23 18:22 IMPRESSION: No acute findings. No radiology studies performed this visit Discharge Plan Discharge Patient Disposition: Home Clinical Impression: Right wrist sprain Condition: Stable Prescriptions: No Action calcium carbonate [Calcium 600] 600 mg calcium (1,500 mg) tablet 600 mg PO BID omega-3 fatty acids [Fish Oil Concentrate] 1,000 mg capsule 2,000 mg PO DAILY cholecalciferol (vitamin D3) 3,000 unit tablet 3,000 unit PO DAILY Galzin 25 mg (zinc) capsule 25 mg PO DAILY Rx Instructions: swallow whole; do not chew/break/dissolve/open Spiriva with HandiHaler 18 mcg capsule, w/inhalation device 1 cap inhalation DAILY Rx Instructions: puncture 1 cap using device; one dose = 2 inhalations budesonide 0.25 mg/2 mL suspension for nebulization 0.25 mg inhalation BID fluticasone propion-salmeterol [Wixela Inhub] 250-50 mcg/dose blister with device 1 inh inhalation BID Qty: 60 3RF albuterol sulfate 90 mcg/actuation HFA aerosol inhaler 2 puff inhalation Q6H PRN (Reason: shortness of breath or wheezing) Qty: 8.5 5RF Multi-Vitamin Tablet 1 tab PO DAILY lutein 20 mg Capsule 20 mg PO DAILY Rx Instructions: give with meal/snack naproxen 500 mg tablet 500 mg PO BID PRN (Reason: pain) Qty: 15 0RF Discharge Orders: Discharge ED (Routine); Ordered 12/24/23 Ordered By: Alex Luu Referrals: Tonia Cooley NP [Primary Care Provider] - Discharge Diet: Usual diet Discharge Activity: Increase activity as tolerated Patient Instructions: Wrist Sprain (ED) Activity Restrictions/Additional Instructions: Rest, ice, compression, and elevation. If you continue to have persistence of pain please follow-up with your primary care provider to obtain a repeat x-ray and 7 to 10 days. Tylenol for pain. Return with any new or worsening symptoms. Coding Level of Care Code ED [employer] for [facility]
[2023-12-24 19:15] VITALS: BP 121/82; PULSE 71; O2SAT 99
== END 2023-12-24 19:16 | disposition home or self-care (01) ==
PROVIDERS: Emergency Provider Physician Assistant; PCP Nurse Practitioner Family
DX: D48.5 Neoplasm of uncertain behavior of skin (principal); L57.0 Actinic keratosis; L57.8 Other skin changes due to chronic exposure to nonionizing radiation; L81.4 Other melanin hyperpigmentation; L82.1 Other seborrheic keratosis; D18.01 Hemangioma of skin and subcutaneous tissue; S63.501A Unspecified sprain of right wrist, initial encounter; V80.010A Animal-rider injured by fall from or being thrown from horse in noncollision accident, initial encounter
CPT/HCPCS: 11102; 17000; 73110; 99203; 99283

== ENCOUNTER 2024-01-31 15:21 | Outpatient (CLI) | payer MEDICARE, SELFPAY ==
--- NOTE | 2024-01-31 15:32 | XRR_ITS ---
PROCEDURE INFORMATION: Exam: XR Right Wrist Exam date and time: 01/31/2024 3:44 PM Age: 68 years old Clinical indication: Right; Patient HX: Pain in dorsal wrist, fall in December, wrist still swollen and in pain, spike in pain level during movement; Additional info: Pain in right wrist TECHNIQUE: Imaging protocol: Radiologic exam of the right wrist. Views: 3 or more views. COMPARISON: CR ([facility], ) 12/24/2023 6:31 PM FINDINGS: Bones/joints: Distal right radial fracture discussed in detail in the report for the x-rays of the right forearm. Otherwise, unremarkable. Soft tissues: Normal. XR/XR wrist RT min 3V* [id number] IMPRESSION: Distal right radial fracture.
--- NOTE | 2024-01-31 15:32 | XRR_ITS ---
PROCEDURE INFORMATION: Exam: XR Right Forearm Exam date and time: 01/31/2024 3:44 PM Age: 68 years old Clinical indication: Lower or forearm; Right; Patient HX: Pain in dorsal wrist, fall in December, wrist still swollen and in pain, spike in pain level during movement; Additional info: Pain in right wrist TECHNIQUE: Imaging protocol: Radiologic exam of the right forearm. Views: 2 views. COMPARISON: CR XR wrist RT min 3V* [id number] 01/31/2024 3:44 PM FINDINGS: Bones/joints: Oblique fracture of the distal right radius extending from the lateral cortex medially to the mid articular cortex of the distal radius. It is slightly impacted, but otherwise, not displaced. Otherwise, unremarkable. Soft tissues: Normal. XR/XR forearm RT 2V [id number] IMPRESSION: Distal right radial fracture.
== END 2024-01-31 15:22 | disposition home or self-care (01) ==
PROVIDERS: PCP Nurse Practitioner Family; Visit Provider Nurse Practitioner Family
DX: S52.334A Nondisplaced oblique fracture of shaft of right radius, initial encounter for closed fracture (principal); W19.XXXA Unspecified fall, initial encounter
CPT/HCPCS: 73090; 73110

== ENCOUNTER → 2024-02-13 07:50 | Outpatient (BNVA) | payer MEDICARE, SELFPAY | PROVIDERS: PCP Nurse Practitioner Family; Visit Provider Orthopaedic Surgery | DX: M25.531 Pain in right wrist (principal); S52.591A Other fractures of lower end of right radius, initial encounter for closed fracture; X58.XXXA Exposure to other specified factors, initial encounter | CPT/HCPCS: 73110; 99203 ==

== ENCOUNTER → 2024-02-26 15:30 | Outpatient (BNVA) | payer MEDICARE, SELFPAY | PROVIDERS: PCP Nurse Practitioner Family; Visit Provider Nurse Practitioner Family | DX: L81.4 Other melanin hyperpigmentation (principal); L82.1 Other seborrheic keratosis; D18.01 Hemangioma of skin and subcutaneous tissue; L57.8 Other skin changes due to chronic exposure to nonionizing radiation; L57.0 Actinic keratosis | CPT/HCPCS: 17000; 99213 ==

== ENCOUNTER 2024-06-08 07:26 | Outpatient (CLI) | payer MEDICARE, SELFPAY ==
[2024-06-08 08:13] LABS: Basophils # 0.1 10^3/uL (0.0-0.1); Basophils % 1.2 %; Eosinophils # 0.3 10^3/uL (0.0-0.8); Eosinophils % 4.7 %; Hematocrit 39.6 % (36-47); Lymphocytes # 2.2 10^3/uL (0.8-4.8); Lymphocytes % 33.5 %; Mean Corpuscular HGB Conc 31.1 g/dL (30-55); Mean Corpuscular Volume 90.2 fl (85-98); Mean Platelet Volume 10.9 fL (7.4-10.4); Monocytes # 0.5 10^3/uL (0.2-0.9); Monocytes % 7.5 %; Neutrophils # 3.47 10^3/uL (1.8-7.7); Neutrophils % 52.9 %; Nucleated Red Blood Cells % 0 %; Platelet Count 386 10^3/cmm (157-399); Red Blood Count 4.39 10^6/uL (3.85-5.65); Red Cell Distribution Width 14.5 % (12.1-15.1); White Blood Count 6.56 10^3/uL (3.29-11.43)
[2024-06-08 08:32] LABS: Alanine Aminotransferase 36 U/L (0-33); Alkaline Phosphatase 144 U/L (35-105); Anion Gap 13.1 (5-19); Aspartate Amino Transferase 20 U/L (0-32); Blood Urea Nitrogen 12 mg/dL (8-23); Calcium 9.2 mg/dL (8.5-10.5); Carbon Dioxide 25 mmol/L (22-29); Chloride 105 mmol/L (98-107); Cholesterol 212 mg/dL (0-200); Globulin 2.4 g/dL (1.3-4.6); Glomerular Filtration Rate 122.3 mL/min (90-130); Glucose 101 mg/dL (65-115); HDL Cholesterol 73 mg/dL (60-100); Iron 59 ug/dL (37-145); LDL Cholesterol Calculated 123 mg/dL (50-129); LDL HDL Ratio 1.68 RATIO (0.00-3.22); Magnesium 2.1 mg/dL (1.7-2.3); Osmolality Calculated 288 mOsm/kg (285-295); Percent Saturation 18.4 % (20-50); Potassium 4.1 mmol/L (3.5-5.1); Sodium 139 mmol/L (136-145); Total Bilirubin 0.4 mg/dL (0.15-1.2); Total Iron Binding Capacity 320 mcg/dl; Total Protein 6.4 g/dL (6.6-8.7); Triglycerides 80 mg/dL (0-150); Unsaturated Iron Binding 261 ug/dL (112-347)
[2024-06-08 08:34] LABS: Calcium 9.4 mg/dL (8.5-10.5)
[2024-06-08 08:40] LABS: Parathyroid Hormone 99.1 pg/mL (15-65)
[2024-06-08 08:48] LABS: 25 Hydroxy Vitamin D 40 ng/mL (30-100); Vitamin B12 807 pg/mL (232-1245)
[2024-06-08 08:50] LABS: Estmated Average Glucose 88; Hemoglobin A1C 4.7 % (4.0-6.0)
== END 2024-06-08 07:27 | disposition home or self-care (01) ==
LOC: LAB 07:32
PROVIDERS: PCP Nurse Practitioner Family; Visit Provider Surgery
DX: K91.2 Postsurgical malabsorption, not elsewhere classified (principal)
CPT/HCPCS: 36415; 80053; 80061; 82306; 82310; 82607; 83036; 83540; 83550; 83735; 83970; 84425; 84630; 85025

== ENCOUNTER → 2024-12-23 14:34 | Outpatient (BNVA) | payer MEDICARE, SELFPAY | PROVIDERS: PCP Nurse Practitioner Family; Visit Provider Nurse Practitioner Family | DX: L82.1 Other seborrheic keratosis (principal); D18.01 Hemangioma of skin and subcutaneous tissue; L81.4 Other melanin hyperpigmentation; L57.8 Other skin changes due to chronic exposure to nonionizing radiation | CPT/HCPCS: 99213 ==